=== PATIENT | female | born 1975 | race Caucasian/White ===

== ENCOUNTER 2021-08-19 08:07 | Outpatient (CLI) | payer OTHER, SELFPAY ==
--- NOTE | ~2021-08-19 | MM_ITS ---
EXAMINATION: MM screening amy BI w farrukh HISTORY: Screening TECHNIQUE: Craniocaudal and mediolateral oblique 3-D tomosynthesis images were obtained and synthetic 2-D images were generated. CAD analysis was submitted and interpreted. COMPARISON: No prior mammogram is available for comparison at this institution. BREAST PARENCHYMAL COMPOSITION: The breasts are heterogenously dense, which may obscure small masses FINDINGS: There are asymmetries centered in the upper outer quadrant of the left breast. There are ad ditional calcifications in this location. Comparison to previous outside mammograms recommended to as sess stability. There is no evidence of suspicious mass, calcification, or architectural distortion t o suggest malignancy in the right breast.. IMPRESSION: 1. Left breast asymmetries and calcifications centered in the upper outer quadrant. 2. Comparison to previous outside mammograms recommended. BI-RADS Category 0: Incomplete: Needs additional imaging evaluation. Reviewed, dictated and finalized at location A. IMPRESSION: 1. Left breast asymmetries and calcifications centered in the upper outer quadr ant. 2. Comparison to previous outside mammograms recommended. BI-RADS Category 0: Incomplete: Needs additional imaging evaluation.
== END 2021-08-19 08:08 | disposition home or self-care (01) ==
PROVIDERS: PCP Family Medicine; Visit Provider Nurse Practitioner
DX: Z12.31 Encounter for screening mammogram for malignant neoplasm of breast (principal); R92.8 Other abnormal and inconclusive findings on diagnostic imaging of breast
CPT/HCPCS: 77063; 77067

== ENCOUNTER → 2022-01-23 13:18 | Outpatient (CLI) | payer OTHER, SELFPAY ==
--- NOTE | ~2022-01-23 | XR_ITS ---
EXAMINATION: XR knee LT 3V DATE: 01/23/2022 13:39 INDICATION: Left knee pain TECHNIQUE: Three views of the left knee were obtained. COMPARISON: None. FINDINGS: Alignment is normal. No fracture or osteochondral lesion. There is mild tricompartmental os teoarthritis characterized by tiny marginal osteophytes. No joint effusion/synovitis. Soft tissues a re unremarkable. IMPRESSION: 1. Mild osteoarthritis without acute osseous abnormality. Reviewed, dictated and finalized at location F. ENTARY READING TUTOR
== END ==
PROVIDERS: PCP Nurse Practitioner; Visit Provider Nurse Practitioner
DX: M17.12 Unilateral primary osteoarthritis, left knee (principal)
CPT/HCPCS: 73562

== ENCOUNTER → 2022-06-20 07:19 | Outpatient (CLI) | payer BC, SELFPAY ==
--- NOTE | ~2022-06-20 | MR_ITS ---
EXAMINATION: MR knee LT wo con DATE: 06/20/2022 08:05 INDICATION: Left knee pain. TECHNIQUE: Magnetic resonance imaging (MRI) of the left knee was performed without intravenous contra st. Sequences included axial PD-weighted FS FSE, coronal PD-weighted FSE and PD-weighted FS FSE, sagi ttal PD-weighted FSE, and sagittal T2-weighted FS FSE. COMPARISON: Left knee radiographs 01/23/2022 FINDINGS: Medial compartment: Medial meniscus is normal. There is cartilage surface irregularity of femoral condyle and tibial cond yle. There are tiny osteophytes. Lateral compartment: Lateral meniscus is normal. There is cartilage surface irregularity of femoral condyle. Tibial cartil age is normal. There are tiny osteophytes. Patellofemoral compartment: There is deep partial thickness cartilage loss of patellar lateral facet with moderate subchondral ed tyrell-like marrow signal intensity and small subchondral cysts. There is cartilage surface irregularity of patellar medial facet. There is shallow partial-thickness cartilage loss of trochlea. Ligaments and tendons: The anterior and posterior cruciate ligaments are normal. Medial collateral ligament and lateral alexa ateral ligament complex are normal. There is mild patellar tendinopathy. Fluid: There is a small knee joint effusion. There is trace fluid in a Singleton's cyst. IMPRESSION: 1. Moderate chondrosis of patellofemoral compartment and mild chondrosis of medial and lateral compar tments. 2. Small knee joint effusion. Reviewed, dictated and finalized at location A. IMPRESSION: 1. Moderate chondrosis of patellofemoral compartment and mild chondrosis of med ial and lateral compartments. 2. Small knee joint effusion.
== END ==
PROVIDERS: PCP Nurse Practitioner Family; Visit Provider Nurse Practitioner Family
DX: M25.562 Pain in left knee (principal); M25.462 Effusion, left knee; M22.2X2 Patellofemoral disorders, left knee
CPT/HCPCS: 73721

== ENCOUNTER 2022-07-24 13:45 | Outpatient (RCR) | payer BC, SELFPAY ==
--- NOTE | 2022-06-26 16:50 | PTOPEVAL1 ---
Assessment and note entered by Lelia Sal, PT, DPT Evaluation Information Assessment Status Evaluation Diagnosis L knee pain Onset chronic Subjective Information Pt states a long history of knee pain, she states over the last year there has been more periods of pain than time with no pain. She also states the intensity is increasing over the last year. Pt states her L knee just has a mild ache at rest with her biggest complaint when going up/down stairs. She states she has noticed an increase in R knee pain, she states likely d/t compensation. She reports a patellar dislocation about 15 years ago. Reported Pain Level Pain Score 2,1: Self Report Assessment PT Clinical Summary Lyly presents to therapy today for her initial evaluation with a diagnosis of L knee pain. Today she demonstrates great knee active ROM. She demonstrates decreased hamstring strength keanu and upon palpation she has increased medial and lateral patellar mobility keanu. She demonstrates knee hyperextension during ambulation as well as deviation during stair ambulation. Skilled physical therapy services are indicated to address the deficits noted above, to improve functional strength, to manage pain, and to return to baseline funciton. Plan of Care Interventions Gait Training,Hot Pack/Cold Pack,Manual Therapy, Neuro Re-education,Patient/Caregiver Educati, Therapeutic Activities,Therapeutic Exercise PT Services Indicated Yes Treatment Frequency and 1x/wk for 6 wks Duration These treatments will address the objective and functional deficits as defined above. The patient will be advanced safely and appropriately in order for the patient to progress towards his/her prior level of function. Additional exercises will be introduced and as well as a comprehensive home exercise program upon discharge, if needed, ?to ensure carryover of functional gains achieved in the clinic. This treatment plan has been reviewed and agreement upon by the patient.
--- NOTE | 2022-07-10 10:50 | PCPTNOTE ---
Patient did not show up for scheduled appointment this date.
--- NOTE | 2022-08-07 15:05 | PTOPDC ---
Assessment and note entered by Lelia Sal, PT, DPT Evaluation Information Assessment Status Discharge - Pt Not Present Diagnosis L knee pain Onset chronic Subjective Information Pt did not show up for scheduled appointment this date. Called to follow up. Pt states she is doing better and was able to do a lot of walking and light jogging without an increase in pain. She would like to be discharged at this time. Assessment PT Clinical Summary Lyly completed 4 visits of skilled therapy from 06/26/22 to 07/24/22.
== END 2022-08-07 15:20 | disposition home or self-care (01) ==
LOC: ANHGOSHPT 13:45
PROVIDERS: PCP Nurse Practitioner Family; Visit Provider Nurse Practitioner Family
DX: M25.562 Pain in left knee (principal); M94.20 Chondromalacia, unspecified site
CPT/HCPCS: 97110; 97112; 97140; 97161; 97530; 99199

== ENCOUNTER 2022-11-14 09:43 | Outpatient (CLI) | payer BC, SELFPAY ==
[2022-11-14 17:54] LABS: Basophils Absolute Auto 0.1 K/mm3 (0.0-0.1); Eosinophils Absolute Auto 0.5 K/mm3 (0-0.3); Hemoglobin 13.1 g/dL (12.0-15.0); Immature Granulocyte Absolute 0.02 K/mm3 (0.00-0.031); Immature Granulocyte Percent A 0.3 % (0-0.5); Lymphocytes Absolute Auto 1.54 K/mm3 (0.9-3.2); Lymphocytes Percent Auto 21.2 % (18.3-44.2); Mean Corpuscular HGB Conc 31.2 g/dl (32-36); Mean Corpuscular Hemoglobin 29.1 pg (26-34); Mean Corpuscular Volume 93.3 fl (80-100); Mean Platelet Volume 10.7 fl (7.4-10.4); Monocytes Absolute Auto 0.5 K/mm3 (0.1-0.6); Neutrophils Absolute Auto 4.6 K/mm3 (1.3-6.7); Neutrophils Percent Auto 63.5 % (45.5-73.1); Platelet Count Result 327 k/mm3 (150-375); White Blood Count 7.3 K/mm3 (4.5-10.0)
[2022-11-14 19:44] LABS: Alanine Aminotransferase 22 U/L (6-35); Albumin Level 4.2 g/dL (3.5-5.1); Alkaline Phosphatase 70 U/L (38-126); Anion Gap 4 mmol/L (8-16); Aspartate Amino Transferase 48 U/L (14-36); Bilirubin,Total 0.4 mg/dL (0.2-1.3); Blood Urea Nitrogen 13 mg/dL (7-17); Calcium 8.9 mg/dL (8.4-10.2); Carbon Dioxide 33 mmol/L (22-30); Chloride 101 mmol/L (98-107); Cholesterol 281 mg/dL (0-200); Estimated Glomerular Filt Rate > 60; Glucose 70 mg/dL (65-110); HDL Direct 71 mg/dL; Potassium 4.3 mmol/L (3.4-5.0); Sodium 138 mmol/L (137-145); Triglycerides 117 mg/dL (<150)
[2022-11-14 19:56] LABS: LDL Cholesterol Direct 150 mg/dL
[2022-11-14 20:19] LABS: Thyroid Stimulating Hormone 0.945 uIU/mL (0.465-4.680)
[2022-11-14 20:30] LABS: Vitamin D 25 Hydroxy 59.3 ng/mL
[2022-11-14 21:19] LABS: Hemoglobin A1C 4.9 % (<5.7)
== END 2022-11-14 09:44 | disposition home or self-care (01) ==
LOC: ANHGOSHLAB 09:45
PROVIDERS: PCP Family Medicine; Visit Provider Nurse Practitioner Family
DX: E53.8 Deficiency of other specified B group vitamins (principal); R25.2 Cramp and spasm; Z13.1 Encounter for screening for diabetes mellitus; Z13.220 Encounter for screening for lipoid disorders; Z13.29 Encounter for screening for other suspected endocrine disorder; I10 Essential (primary) hypertension
CPT/HCPCS: 36415; 80053; 80061; 82306; 82607; 83036; 84443; 85025

== ENCOUNTER → 2022-11-14 09:56 | Outpatient (CLI) | payer BC, SELFPAY ==
--- NOTE | ~2022-11-14 | XR_ITS ---
EXAMINATION: XR chest 2V Exam Date/Time: 11/14/2022 9:58 CDT HISTORY: asthma persistant cough for several months Comparison: None. RESULT: Lines, tubes, and devices: None. Lungs and pleura: Clear. Cardiomediastinal silhouette: Normal. Other: No acute osseous or upper abdominal finding. IMPRESSION: No acute cardiopulmonary process. Reviewed, dictated and finalized at location K.
== END ==
PROVIDERS: PCP Nurse Practitioner Family; Visit Provider Nurse Practitioner Family
DX: J45.909 Unspecified asthma, uncomplicated (principal)
CPT/HCPCS: 71046

== ENCOUNTER 2022-12-14 13:09 | Outpatient (CLI) | payer BC, SELFPAY ==
[2022-12-22 21:27] LABS: Estrogen 192 pg/mL
== END 2022-12-14 13:10 | disposition home or self-care (01) ==
LOC: ANHGOSHLAB 13:13
PROVIDERS: PCP Nurse Practitioner Family; Visit Provider Nurse Practitioner Family
DX: Z00.00 Encounter for general adult medical examination without abnormal findings (principal); I10 Essential (primary) hypertension; Z13.220 Encounter for screening for lipoid disorders; R23.2 Flushing; E55.9 Vitamin D deficiency, unspecified; Z13.1 Encounter for screening for diabetes mellitus; E53.8 Deficiency of other specified B group vitamins; Z13.29 Encounter for screening for other suspected endocrine disorder; R73.9 Hyperglycemia, unspecified
CPT/HCPCS: 36415; 82672

== ENCOUNTER 2023-01-16 10:00 | Outpatient (CLI) | payer BC, SELFPAY ==
--- NOTE | ~2023-01-16 | MM_ITS ---
EXAMINATION: MM screening amy BI w farrukh HISTORY: Screening TECHNIQUE: Craniocaudal and mediolateral oblique 3-D tomosynthesis images were obtained and synthetic 2-D images were generated. CAD analysis was submitted and interpreted. COMPARISON: Comparison to multiple prior studies sequentially, with oldest reviewed study dated 06/24. BREAST PARENCHYMAL COMPOSITION: There are scattered areas of fibroglandular density. FINDINGS: There is no evidence of suspicious mass, calcification, or architectural distortion to sugg est malignancy in either breast. There has been no suspicious interval change. IMPRESSION: 1. No mammographic evidence of malignancy. 2. Recommend routine screening mammography in one year. BI-RADS Category 1: Negative Reviewed, dictated and finalized at location A. E FORMING MACHINE OPERATOR
== END 2023-01-16 10:01 | disposition home or self-care (01) ==
LOC: ANHIMG 10:03
PROVIDERS: PCP Nurse Practitioner Family; Visit Provider Family Medicine
DX: Z12.31 Encounter for screening mammogram for malignant neoplasm of breast (principal)
CPT/HCPCS: 77063; 77067

== ENCOUNTER 2023-02-01 08:40 | Outpatient (CLI) | payer BC, SELFPAY ==
--- NOTE | ~2023-02-01 | DEXA_ITS ---
Bone Density Report Name: ROSELINE MORA Age: 47 Sex: Female Ethnicity: White Date of : 1975 Indication: postmenopausal; history of glucocorticoids; prior fracture; asthma or emphysema; hysterectomy; Referring Provider: SHARON WARD Study: Bone densitometry was performed. Exam Date: February 01, 2023 Accession number: [id number] Bone Density: Region BMD T-score Z-score Classification AP Spine(L1-L4) 0.891 -1.4 -0.8 Osteopenia Femoral Neck (Left) 0.706 -1.3 -0.7 Osteopenia Total Hip (Left) 0.873 -0.6 -0.2 Normal Femoral Neck (Right) 0.708 -1.3 -0.7 Osteopenia Total Hip (Right) 0.854 -0.7 -0.3 Normal Total Hip Mean 0.863 -0.7 -0.3 Normal World Health Organization criteria for BMD impression classify patients as: Normal (T-score at or above -1.0), Osteopenia (T-score between -1.0 and -2.5), or Osteoporosis (T-score at or below -2.5). Clinical Information Provided by Patient: Has had a low trauma fracture Has taken Glucocorticoids Has used the following medications: Vitamin D, Calcium Has the following medical conditions: Asthma or Emphysema, Hysterectomy Patient maximum height was 64 Menopause Age: 40 No regular weight bearing exercise Drinks caffeinated beverages Onset of menses at age 12 Number of children 2 Impression: The patient has low bone mass, based on the Total Spine T-score. The patient has risk factors, including: previous fracture, history of glucocorticoid therapy. Discussion: BONE DENSITY IS LOW AT ONE OR MORE SKELETAL SITES. This patient's lowest T-score is low at one or more skeletal sites. It meets the World Health Organization's (WHO) criteria for ?low bone mass? (T-score between -1.0 and -2.5). The patient's 10-year risk of fracture as calculated by FRAX is less than the threshold where pharmacological therapy is recommended by the National Osteoporosis Foundation (NOF). However, all treatment decisions require clinical judgment and consideration of individual patient factors, including patient preferences, comorbidities, previous drug use, risk factors not captured in the FRAX model (e.g., frailty, falls, vitamin D deficiency, increased bone turnover, interval significant decline in bone density) and possible under or overestimation of fracture risk by FRAX. The patient should follow a healthful lifestyle (good nutrition with adequate calcium and vitamin D, and appropriate weight-bearing exercise). Follow-Up: Consider repeating this study in 2 to 3 years to reassess this patient's status, or sooner if there is some new clinical indication. Reported by: RANULFO on 02/01/2023 8:57:00 AM. Reviewed, dictated and finalized at location ABecky PIERRE
== END 2023-02-01 08:41 | disposition home or self-care (01) ==
LOC: ANHIMG 08:41
PROVIDERS: PCP Nurse Practitioner Family; Visit Provider Nurse Practitioner Family
DX: Z78.0 Asymptomatic menopausal state (principal); Z79.51 Long term (current) use of inhaled steroids; M85.88 Other specified disorders of bone density and structure, other site; M85.852 Other specified disorders of bone density and structure, left thigh; M85.851 Other specified disorders of bone density and structure, right thigh
CPT/HCPCS: 77080

== ENCOUNTER 2023-05-07 02:41 | Day surgery (SDC) | payer BC, SELFPAY ==
[2023-04-23 08:56] VITALS: BMI 28.8
--- NOTE | 2023-04-23 09:09 | PC.NURSE ---
Addendum entered by Renetta Blair RN 04/30/23 14:27: PT TO ARRIVE AT 1300 ON 05/07/23 FOR SURGERY AT 1500. Original Note: Report to the Outpatient Waiting Room, entrance under the green pavilion located off [facility], at time 0830 on date 05/01/23. Planned Procedure Time: 1030. Time changes happen often and if your time is changed the preop area will call you the afternoon before. - You and your visitor will be asked to self-screen and do not enter if you have any COVID symptoms. - A mask is optional within the hospital at this time. Patients may have clear liquids (water, carbonated beverages, clear teas, apple juice) until 3 hours prior to surgery with a maximum of 20 ounces. - No food from midnight until time of surgery Take the following medications with a SIP of water the morning of surgery: INHALERS, BUPROPION, DILTIAZEM, SERTRALINE DO NOT STOP ANY OF YOUR OTHER PRESCRIPTION MEDICATIONS PRIOR TO SURGERY ?EXCEPT THE FOLLOWING Medications to discontinue per physician: VITAMINS/SUPPLEMENTS Date to take last dose: 04/27/23 Please no make-up, nail urdu, hairspray, perfume, deodorant, or body powder the day of surgery. No jewelry (including any body piercings) or valuables the day of surgery, leave them at home. Please take a shower or bath the night before, or the morning of, surgery with an antibacterial soap. Wear comfortable, loose fitting clothing. - Jewelry must be removed prior to entering the operating room. Rings and piercings that are not removed may be cut off. - The hospital will not accept responsibility for valuables. - Please leave all valuables, including medications, at home the day of surgery. If you are going home after surgery, a licensed crude oil driver must drive you home. - NO public transportation without another adult if you receive anesthesia. - We recommend that an adult stay with you for 24 hours following discharge. - We also recommend that you do not drive, make important decision, drink alcoholic beverages, or take any drugs that were not prescribed by your health care provider for at least 24 hours after your discharge time. Follow any additional instructions given to you from your surgeon. If you or anyone in your household have experienced Covid symptoms in the past week, please notify your surgeon or the nurse liaison at the phone number below for possible testing. Telephone instructions given to ZEINA DUKES MORGAN and asked if any additional questions and then verbalized understanding. Patient advised to call surgeon office or pre surgery nurse liaison [phone] if any additional questions.
--- NOTE | 2023-04-30 14:27 | PC.NURSE ---
Pt states no changes in medications or health history since initial interview. New pre-op instructions reviewed with pt. Pt denies further questions at this time.
[2023-05-07] VITALS (7 sets, daily range): BP systolic 110–140; BP diastolic 54–87; PULSE 60–86; RESP 12–18; TEMP 36.5–37.2; O2SAT 97–100
--- NOTE | 2023-05-07 12:28 | WPDHPUPDATE1 ---
History and Physical Update Update Date/Time: 05/07/23 12:28 History and Physical has been reviewed, including an updated exam of the patient. There are NO changes in the patient's condition. Risks, benefits, and alternatives have been discussed and questions answered. Patient agrees to proceed with procedure.
[2023-05-07] MEDS: LACTATED RINGERS 1,000 ML 30 ML IV CONT ×2 (13:45→16:37)
--- NOTE | 2023-05-07 14:16 | WPDANESEPPF ---
Anes - Initial Pre Proc Eval Procedure: Operation Date: 05/07/23 15:00 Proposed Procedures p Left Knee Arthroscopy, Possible Lateral Release, Proceed As Indicated - Mikel Huynh MD Date/Time: 05/07/23 14:16 Surgeon: Mikel Huynh MD Pre Op Diagnosis: left knee patella femoral maltracking Patient Data Age: 47 Gender: F Height: 1.63 m Weight: 74.5 kg Last Vital Signs Temp 36.5 C 05/07/23 13:23 Pulse 65 05/07/23 13:23 Resp 18 05/07/23 13:23 BP 130/80 05/07/23 13:23 Pulse Ox 98 05/07/23 13:23 O2 Del Method Room Air 05/07/23 13:23 Allergies Allergy/AdvReac Type Severity Reaction Status Date / Time adhesive AdvReac SKIN Verified 05/07/23 13:16 IRRITATION benzoyl peroxide AdvReac SKIN Verified 05/07/23 13:16 IRRITATION Home Medications Medication Instructions Recorded Confirmed Type calcium carbonate 500 mg calcium 500 mg PO BID 09/20/20 05/07/23 History (1,250 mg) chewable tablet (Calcium 500) cetirizine 10 mg tablet (Zyrtec) 10 mg PO DAILY PRN Allergy Symptoms 09/20/20 05/07/23 History cholecalciferol (vitamin D3) 50 50 mcg PO DAILY 09/20/20 05/07/23 History mcg (2,000 unit) capsule iron,carbonyl 65 mg-vitamin C 125 1 tablet PO DAILY 09/20/20 05/07/23 History mg tablet,delayed release (Vitron-C) multivitamin (Multiple Vitamins 1 tablet PO DAILY 09/20/20 05/07/23 History tablet) albuterol sulfate 90 mcg/actuation See Rx Instructions .Route 09/14/21 05/07/23 Rx aerosol inhaler .COMPLEX #18 grams sertraline 100 mg tablet See Rx Instructions .Route 05/29/22 05/07/23 Rx .COMPLEX #135 tabs mometasone-formoterol HFA 200 See Rx Instructions .Route 10/17/22 05/07/23 Rx mcg-5 mcg/actuation aerosol .COMPLEX #39 grams inhaler (Dulera) bupropion HCl 100 mg tablet 100 mg PO TID 11/14/22 05/07/23 History triamcinolone acetonide 0.1 % 1 applic topical BID #30 grams 11/14/22 05/07/23 Rx topical ointment diltiazem HCl 120 mg 120 mg PO DAILY #90 caps 01/08/23 05/07/23 Rx capsule,extended release 24 hr montelukast 10 mg tablet See Rx Instructions .Route 03/13/23 05/07/23 Rx .COMPLEX #90 tabs chlorhexidine gluconate 4 % 1 applic topical DAILY #237 mL 04/24/23 05/07/23 Rx topical liquid (Hibiclens) Patient hx anesthesia problems: none Family hx anesthesia problems: none Results Review: All pre-operative results and documents have been reviewed as part of the pre-operative evaluation. [facility] Past Medical History Medical History Abnormal heart rate Acne Allergies Anemia Anxiety Asthma Chondromalacia Dry eyes, bilateral Fibromyalgia Hyperlipidemia Left knee pain Migraine Patellofemoral pain syndrome Right shoulder pain Sternoclavicular joint pain SVT (supraventricular tachycardia) Wears glasses Surgical History Surgical History H/O gastric bypass H/O: hysterectomy (~2012) Family History Family History Father Asthma Cancer Mother Cancer Depression Anxiety Sibling Anxiety Depression Cancer Asthma Unknown Anxiety Depression Asthma Grandparent Cancer both maternal and paternal grandparents Diabetes mellitus maternal grandparents Asthma both maternal and paternal grandparents Anxiety maternal grandparent Depression maternal grandparent Social History Social History Smoking status: Never smoker Alcohol intake: current Alcohol use details: 2/MONTH Substance use: never Substance use type: does not use Other substance usage details: occasionnally does edibles Lack of Transportation: No Lack of Food: Never True Current Housing: I Have Housing Concerned About Future Housing: No Difficulty Paying Gas/Electric Bills: No Diff
[2023-05-07] MEDS: CELECOXIB 200 MG CAPSULE PO (14:58)
[2023-05-07] MEDS: ACETAMINOPHEN 500 MG TABLET 1000 MG PO (14:58)
[2023-05-07] MEDS: ceFAZolin 2 GM/D5W 50 ML 2 GM/50 ML BAG IVPB (16:02)
[2023-05-07] MEDS: BUPivacaine HCL 0.5% 10 ML AMP 30 ML INFILTRATE (16:03)
--- NOTE | 2023-05-07 16:43 | W.PM.PROC2 ---
Procedure Note - Detailed Date of Procedure 05/07/23 Pre-op Diagnosis left knee patella femoral maltracking Post-op Diagnosis Same Procedure Performed LEFT KNEE SCOPE Surgeon Mikel Huynh MD Anesthesia General Description of Procedure PATIENT WAS TAKEN TO THE OR. THE LEFT LEG WAS PREPPED AND DRAPED STERILE. TROCARS WERE PLACED IN THE USUAL FASHION. CAMERA WAS INTRODUCED. THERE WAS SEVERE CHONDROMALACIA TO THE PATELLA. THE TROCHLEA HAD NEGLIGIBLE CHONDROMALACIA. THERE WAS A LOT OF SYNOVITIS IN ALL COMPARTMENTS. THE MEDIAL COMPARTMENT SHOWED NO CHONDROMALACIA TO THE MEDIAL FEMORAL CONDYLE OR TO THE TIBIAL PLATEAU. THERE WAS NO TEAR TO THE MEDIAL MENISCUS. THE ACL WAS INTACT. THE LATERAL MENISCUS WAS NOT TORN. THE LATERAL COMPARTMENT HAD NO CHONDROMALACIA. A SYNOVECTOMY WAS PREFORMED. THE PATELLA UNDERWENT CHONDROPLASTY. THERE WAS GRADE 3 CHONDROMALACIA IN PART OF THE PATELLA. THERE WAS NO FULL THICKNESS DEFECT TO THE PATELLA. THE PATELLA TRACKED WELL WITHIN THE TROCHLEA. IT WAS FELT THAT A LATERAL RELEASE WAS NOT INDICATED. SYNOVECTOMY WAS PREFORMED IN THE SUPERIOR MEDIAL COMPARTMENT. THE WOUNDS WERE APPROXIMATED WITH 4.0 NYLON. STERILE DRESSING WAS APPLIED. PATIENT WAS EXTUBATED. Estimated Blood Loss -5.0 Complications No immediate complications Condition Stable Disposition PACU
[2023-05-07] MEDS: fentaNYL CITRATE INJ (*CRX) 100 MCG/2 ML VIAL 25 MCG IV PUSH ×8 (16:52→17:08)
[2023-05-07] MEDS: KETOROLAC 15 MG/ML VIAL (*BKC) IV PUSH (17:05)
[2023-05-07] MEDS: oxyCODONE HCL (*CRX) 5 MG TAB IR PO (17:44)
== END 2023-05-07 18:12 | disposition home or self-care (01) ==
PROVIDERS: PCP Nurse Practitioner Family; Visit Provider Orthopaedic Surgery
PROC: (CPT 29870; principal; 2023-05-07 15:00)
DX: M22.2X2 Patellofemoral disorders, left knee (principal); M22.42 Chondromalacia patellae, left knee; M65.862 Other synovitis and tenosynovitis, left lower leg; J45.909 Unspecified asthma, uncomplicated; I47.10 Supraventricular tachycardia, unspecified; F41.9 Anxiety disorder, unspecified; E78.5 Hyperlipidemia, unspecified; M79.7 Fibromyalgia; D64.9 Anemia, unspecified; Z79.51 Long term (current) use of inhaled steroids; Z98.84 Bariatric surgery status
CPT/HCPCS: 29876; A9270; J0690; J1100; J1885; J2250; J2405; J2704; J3010; J7120

== ENCOUNTER 2023-09-17 10:13 | Outpatient (CLI) | payer BC, SELFPAY ==
--- NOTE | ~2023-09-17 | XR_ITS ---
Clinical Indication: Cough PA and lateral views of the chest: Comparison: 11/14/2022 Findings: The lungs are clear, without evidence of focal consolidation or pleural effusion. Cardiome diastinal silhouette is within normal limits. Bones and soft tissues are unremarkable. Impression: Normal chest. Reviewed, dictated and finalized at location . Impression: Normal chest.
== END 2023-09-17 10:14 ==
LOC: GOSHIMG 10:14
PROVIDERS: PCP Nurse Practitioner Family; Visit Provider Nurse Practitioner Family
DX: R06.3 Periodic breathing (principal)
CPT/HCPCS: 71046

== ENCOUNTER 2023-11-27 08:04 | Outpatient (CLI) | payer BC, SELFPAY ==
--- NOTE | 2023-11-28 08:51 | WPDPFTINT ---
PFT Procedure Performed PFT Procedure Performed Spirometry with Pre/Post Bronchodilator Plethysmography (Lung Vol) Diffusing Cap (DLCO) Flow Vol Loop PFT Interpretation Lung volumes were measured with the body plethysmography method. Lung volumes are unremarkable. Spirometry showed normal expiratory flow rates and a normal FEV1 to FVC ratio of 84%. Following administration of a bronchodilator there was no significant increase in expiratory flow rates. Lung diffusion capacity is within the normal range at 88% predicted. The flow-volume loop is unremarkable. Impression: Spirometry, lung volumes, and lung diffusion capacity all within the normal range.
== END 2023-11-27 08:05 | disposition home or self-care (01) ==
LOC: ANHPFT 08:05
PROVIDERS: PCP Nurse Practitioner Family; Visit Provider Nurse Practitioner Family
DX: R05.3 Chronic cough (principal)
CPT/HCPCS: 94060; 94726; 94729

== ENCOUNTER 2023-12-19 06:34 | Outpatient (CLI) | payer BC, SELFPAY ==
--- NOTE | ~2023-12-19 | CT_ITS ---
CT Scan of the Chest without Contrast: Clinical Indication: Chronic cough Technique: Contiguous sections were acquired throughout the chest without intravenous contrast. Dose reduction technique was used on this scan by utilizing automated exposure control and iterative recon struction technique. The dose-length product (DLP) was 170.38 mGy-cm. Findings: There is no evidence of any significant mediastinal, hilar or axillary lymphadenopathy. The mediastin al soft tissues appear normal. There is no evidence of pleural or pericardial effusion. The lungs are clear. No pulmonary nodules or infiltrates are noted. Images through the upper abdomen reveal evidence of prior bariatric surgery. Impression: No significant abnormalities seen. Reviewed, dictated and finalized at location . Impression: No significant abnormalities seen.
== END 2023-12-19 06:35 | disposition home or self-care (01) ==
PROVIDERS: PCP Nurse Practitioner Family; Visit Provider Nurse Practitioner Family
DX: R05.3 Chronic cough (principal); J47.9 Bronchiectasis, uncomplicated
CPT/HCPCS: 71250

== ENCOUNTER 2024-08-12 12:25 | Emergency (ER) | payer BC, SELFPAY ==
--- NOTE | 2024-08-12 13:15 | ED_ITS ---
HPI - Extremity Injury (Upper) General Chief Complaint: Extremity Injury, Upper Stated Complaint: R THUMB & FINGER NUMBNESS/TINGLING Time Seen by Provider: 08/12/24 13:05 Source: patient and RN notes reviewed Mode of arrival: ambulatory Limitations: no limitations History of Present Illness HPI narrative: 49-year-old female presents [facility] complaining of numbness and tingling to right thumb and index finger. Patient said last night she was carving would when she swelling developed numbness and tingling to her right thumb and right index finger. Patient denies any pain or injury to her right hand. Patient reports having a pins and needle sensation to her right the middle right index finger. Patient reports she can still feel to her right thumb and right index finger through with palpation. Patient is able to use her right hand without any other issues. Related Data Home Medications ?Medication ?Instructions ?Recorded ?Confirmed ?Last Taken ?Type calcium carbonate (Calcium 500) 500 mg PO BID 09/20/20 12/05/23 Unknown History cetirizine 10 mg tablet (Zyrtec) 10 mg PO DAILY PRN Allergy Symptoms 09/20/20 12/05/23 Unknown History cholecalciferol (vitamin D3) 50 50 mcg PO DAILY 09/20/20 12/05/23 Unknown History mcg (2,000 unit) capsule iron,carbonyl 65 mg-vitamin C 125 1 tablet PO DAILY 09/20/20 12/05/23 Unknown History mg tablet,delayed release (Vitron-C) multivitamin (Multiple Vitamins 1 tablet PO DAILY 09/20/20 12/05/23 Unknown History tablet) bupropion HCl 100 mg tablet 100 mg PO TID 11/14/22 12/05/23 05/07/23 History hydroxyzine HCl 25 mg tablet mg PO ONCE 05/29/23 12/05/23 Unknown History sertraline 100 mg tablet 200 mg PO DAILY 05/29/23 12/05/23 Unknown History Allergies Allergy/AdvReac Type Severity Reaction Status Date / Time adhesive AdvReac SKIN Verified 08/12/24 12:54 IRRITATION benzoyl peroxide AdvReac SKIN Verified 08/12/24 12:54 IRRITATION Review of Systems Review of Systems: CONSTITUTIONAL: Denies fever, chills, or sweats. EYES: Denies visual changes, redness, or discharge. ENT: Denies rhinorrhea, congestion, sore throat, or otalgia. CARDIOVASCULAR: Denies chest pain, palpitations, or edema. RESPIRATORY: Denies cough or dyspnea. GASTROINTESTINAL: Denies abdominal pain, nausea, vomiting, or diarrhea. GENITOURINARY: Denies dysuria or hematuria. SKIN: Denies rash, wound, or itching. MUSCULOSKELETAL: Denies injury, swelling back pain, joint pain, or myalgia. Positive for right thumb and index finger numbness and tingling. NEUROLOGIC: Denies headache, numbness, or weakness. PSYCHIATRIC: Denies anxiety or depression. All other systems reviewed are negative, except as documented in HPI. [facility] Past Medical History Medical History Dry eyes, bilateral Sternoclavicular joint pain Right shoulder pain Anemia Abnormal heart rate Wears glasses Chondromalacia Patellofemoral pain syndrome Left knee pain Hyperlipidemia Acne SVT (supraventricular tachycardia) Fibromyalgia Migraine Anxiety Asthma Allergies Surgical History Surgical History S/P left knee arthroscopy H/O gastric bypass H/O: hysterectomy (~2012) Family History Family History Father Asthma Cancer Mother Cancer Depression Anxiety Sibling Anxiety Depression Cancer Asthma Unknown Anxiety Depression Asthma Grandparent Cancer both maternal and paternal grandparents Diabetes mellitus maternal grandparents Asthma both maternal and paternal grandparents Anxiety maternal grandparent Depression maternal grandparent Social History Social History Smoking status: Never smoker Alcohol intake: current Alcohol use details: 2/MONTH Substance use: never Substance use type: does not use Other substance usage details: occasionnally does edibles Lack of Transportation: No Lack of Food: Never True Current Housing: I Have Housing Concerned About Future Housing: No Difficulty Paying Gas/Electric Bills: No Difficulty Paying for Meds: No Currently Unemployed: No Education: High School Diploma/GED Difficulty w/ Childcare or Family Care: No Living arrangements: with family Occupation/Education: occupation Gender identity (if verbalized by the patient): Female Spiritual care concerns: No Agree to blood products: Yes Comments At the time of my signature, I reviewed and agree with the nursing past medical, surgical, social, and family history. There is no relevant family history pertinent to the patient complaint. Exam Narrative: GENERAL: This is a well-nourished, well-developed adult, in no apparent distress. They are non ill-appearing, nontoxic appearing. HEAD: normocephalic, atraumatic. EYES: Sclera clear/white. Vision is grossly intact. Conjunctiva normal. Extraocular movement intact. EARS: External ears normal Hearing grossly intact. NOSE: External nose normal THROAT: Mucous membranes moist NECK: Neck supple CARDIOVASCULAR: Regular rate and rhythm RESPIRATORY: Respiratory rate normal, respiratory effort nonlabored, no respiratory distress NEURO: awake, alert, and oriented to person, place and time. There were no obvious focal neurologic abnormalities. EXTREMITIES: Right hand No obvious deformity, injury, swelling, bruising, redness. Normal range of motion. Normal pronation, supination, flexion, extension of right wrist. No bony tenderness. Capillary refill less than 3 seconds. Pulse 2 +palpable. Patient reports paresthesia to right thumb and right index finger. Patient is able to feel examiner palpate her right index finger and right thumb. No snuffbox tenderness. Neurovascular status intact distal injury. Patient is able to make okay sign, stop sign, fist, and okay sign. Normal strength right hand. Patient is able to wiggle her fingers. Radial pulse 2 +and palpable. Negative Tinel sign and phalen's test. BACK: Nontender without deformity. Course Course Emergency Course: Portions of this record may have been created with voice recognition software Level of Care: Express Care Visit Vital Signs Vital signs: Reviewed MDM - Extremity Injury (Upper) MDM Narrative Medical decision making narrative: Test negative for any carpal tunnel syndrome. No obvious injury or deformity, or pain to right hand. Likely nerve compression from overuse during wood carving. Recommend follow-up with orthopedist. MDM Differential Diagnosis Differential diagnosis: Likely other (Paresthesia, carpal tunnel syndrome, nerve compression, arthritis) Critical Care Time Critical Care Time Critical Care Time: No Discharge Plan Discharge Clinical Impression: Numbness and tingling of right thumb Patient Disposition: Home Condition: Stable Instructions: Paresthesia (ED) Additional Instructions: Apply ice 15-20 minute intervals several times a day Keep it wrapped with ANGEL or a thumb spica splint the may purchase [id number] at [employer] Tylenol 1000mg every 8 hours as needed Follow up with your primary care provider or an orthopedist in 3-5 days for further evaluation and management of your symptoms. If you develop any worsening symptoms, inability to use your right hand, right- sided weakness, slurred speech, facial droop, or any other concerns please go to the ER immediately. Patient Language: Israeli Prescriptions: No Action cetirizine [Zyrtec] 10 mg tablet 10 mg PO DAILY PRN (Reason: Allergy Symptoms) multivitamin [Multiple Vitamins] Tablet 1 tablet PO DAILY cholecalciferol (vitamin D3) 50 mcg (2,000 unit) capsule 50 mcg PO DAILY Vitron-C 65 mg iron- 125 mg tablet,delayed release (DR/EC) 1 tablet PO DAILY calcium carbonate [Calcium 500] 500 mg calcium (1,250 mg) tablet,chewable 500 mg PO BID bupropion HCl 100 mg tablet 100 mg PO TID sertraline 100 mg tablet 200 mg PO DAILY hydroxyzine HCl 25 mg tablet PO ONCE triamcinolone acetonide 0.1 % ointment 1 applic topical BID Qty: 30 3RF Spiriva Respimat 1.25 mcg/actuation mist 2 puff inhalation Q24H Qty: 4 11RF albuterol sulfate 90 mcg/actuation HFA aerosol inhaler 2 puff inhalation Q4H PRN (Reason: shortness of breath or wheezing) Qty: 6.7 4RF montelukast 10 mg tablet See Rx Instructions .ROUTE .COMPLEX Qty: 90 1RF Dose Instruction: TAKE 1 TABLET BY MOUTH EVERY DAY IN THE EVENING Rx Instructions: TAKE 1 TABLET BY MOUTH EVERY DAY IN THE EVENING Dulera 200-5 mcg/actuation HFA aerosol inhaler See Rx Instructions .ROUTE .COMPLEX Qty: 39 3RF Dose Instruction: INHALE 2 PUFFS BY MOUTH TWICE DAILY Rx Instructions: INHALE 2 PUFFS BY MOUTH TWICE DAILY ezetimibe [Zetia] 10 mg tablet 10 mg PO DAILY Qty: 90 1RF diltiazem HCl 120 mg capsule,extended release 24hr 120 mg PO DAILY Qty: 90 1RF Follow-up/Referrals: Yohana Alfaro NP [Primary Care Provider] - Bebo Zamorano MD [Physician] - Time of Disposition: 13:13
== END 2024-08-12 13:25 | disposition home or self-care (01) ==
PROVIDERS: PCP Nurse Practitioner Family
DX: R20.0 Anesthesia of skin (principal); R20.2 Paresthesia of skin; E78.5 Hyperlipidemia, unspecified; M79.7 Fibromyalgia; J45.909 Unspecified asthma, uncomplicated; Z98.84 Bariatric surgery status
CPT/HCPCS: 99212; G0463